=== PATIENT | male | born 2005 | race Hispanic/Latino ===

== ENCOUNTER 2025-05-28 15:03 | Emergency (ER) | payer SELFPAY ==
[2025-05-28] MEDS ORDERED: Lidocaine 1% w/Epinephrine 1:100K 20 ML VIAL ONE (15:52)
== END 2025-05-28 16:22 | disposition home or self-care (01) ==
LOC: ERS 15:03
DX: S01.412A Laceration without foreign body of left cheek and temporomandibular area, initial encounter (principal); W22.09XA Striking against other stationary object, initial encounter; Y93.89 Activity, other specified; Y99.0 Civilian activity done for income or pay
CPT/HCPCS: 12011; 99282

== ENCOUNTER 2025-06-04 13:00 | Emergency (ER) | payer SELFPAY | END 2025-06-04 13:14 | disposition home or self-care (01) | LOC: ERS 13:00 | DX: S01.412D Laceration without foreign body of left cheek and temporomandibular area, subsequent encounter (principal) ==